=== PATIENT | female | born 1990 | race Two or more races ===

== ENCOUNTER 2016-11-26 22:07 | Emergency (ER) | payer OTHER ==
[~2016-11-26] VITALS: Ht 167.6 cm; Wt 63.5 kg
--- NOTE | 2016-11-26 22:40 | NUR ---
TO BED 4 AMBULATORY C/O INTERMITTENT RLQ ABD PAIN, SHOOTING, SHARP X 1 MONTH, WITH DISCHARGE. PT AAOX4 NO ACUTE DISTRESS NOTED, RESP EVEN AND UNLABORED. PENDING ER MD MARSH.
--- NOTE | 2016-11-26 22:49 | NUR ---
RAJIV JEROME AT BEDSIDE TO MAXIMO BROWN.
[2016-11-26] MEDS ORDERED: IV NS 0.9% 1,000 ML BAG IV ONE (23:00)
[2016-11-26] MEDS ORDERED: KETOROLAC TROMETHAMINE INJ 30 MG/ML VIAL IV ONE (23:00)
[2016-11-26] MEDS ORDERED: KETOROLAC TROMETHAMINE INJ 30 MG/ML VIAL ONE (23:02)
--- NOTE | 2016-11-26 23:16 | NUR ---
PT MEDICATED BY RN PER ER MD ORDER.
[2016-11-26 23:18] LABS: BASOPHILS % (AUTO) 0.4 % (0.0-2.0); EOSINOPHILS % (AUTO) 0.1 % (0.0-6.0); HEMATOCRIT 41 % (33-45); HEMOGLOBIN 14.2 g/dL (11.5-14.8); LYMPHOCYTES # (AUTO) 1.2 /CMM (0.8-4.8); LYMPHOCYTES % (AUTO) 12.1 % (20.0-44.0); MEAN CORPUSCULAR HEMOGLOBIN 30 PG (26.0-33.0); MEAN CORPUSCULAR HGB CONC 35 g/dl (31.0-36.0); MEAN CORPUSCULAR VOLUME 87 fL (82-100); MONOCYTES # (AUTO) 0.5 /CMM (0.1-1.30); MONOCYTES % (AUTO) 5.4 % (2.0-12.0); NEUTROPHILS # (AUTO) 7.9 /CMM (1.8-8.9); PLATELET COUNT (AUTO) 190 /CMM (150-450); RDW COEFFICIENT OF VARIATION 11.9 (11.5-15.0); RED BLOOD CELL COUNT(AUTO) 4.74 MIL/uL (4.0-5.2); WHITE BLOOD COUNT (AUTO) 9.7 K/uL (4.3-11.0)
[2016-11-26 23:23] LABS: APPEARANCE,URINE CLEAR (CLEAR); BILIRUBIN,URINE NEGATIVE (NEGATIVE); BLOOD, URINE NEGATIVE Ery/uL (NEGATIVE); KETONES,URINE NEGATIVE (NEGATIVE); LEUKOCYTE ESTERASE ,URINE NEGATIVE (NEGATIVE); NITRITE, URINE NEGATIVE (NEGATIVE); PH,URINE 7.5 (5.0-8.0); PROTEIN,URINE NEGATIVE (NEGATIVE); UGLUCOSE NEGATIVE (NEGATIVE); UROBILINOGEN,URINE 0.2 EU/dL (0.2)
[2016-11-26 23:25] LABS: COLOR,URINE Light yellow (YELLOW)
[2016-11-26 23:26] LABS: PREGNANCY TEST URINE QUAL NEGATIVE (NEGATIVE)
[2016-11-26 23:28] LABS: CALCIUM, SERUM 8.6 mg/dL (8.5-10.1); CREATININE 0.9 mg/dL (0.6-1.3); POTASSIUM 3.8 mmol/L (3.5-5.1)
[2016-11-26 23:31] LABS: INR 0.98 (0.87-1.13); PROTHROMBIN TIME 10.5 SECS (9.5-12.7)
--- NOTE | 2016-11-26 23:33 | NUR ---
PRUDENCIO GONZALEZ AT BEDSIDE.
[2016-11-26 23:34] LABS: ALBUMIN 3.5 g/dL (3.4-5.0); BILIRUBIN,DIRECT 0.1 mg/dL (0.0-0.2); BILIRUBIN,TOTAL 0.5 mg/dL (0.2-1.0); TOTAL PROTEIN, SERUM 6.5 g/dL (6.4-8.2)
[2016-11-27] MEDS ORDERED: METRONIDAZOLE 500 MG TABLET PO ONE (01:30)
[2016-11-27] MEDS ORDERED: CEFTRIAXONE 500 MG VIAL IM ONE (01:30)
[2016-11-27] MEDS ORDERED: CEFTRIAXONE 500 MG VIAL ONE (01:30)
[2016-11-27] MEDS ORDERED: METRONIDAZOLE 500 MG TABLET ONE (01:31)
[2016-11-27] MEDS ORDERED: LIDOCAINE HCL/PF 2 % 5ML SDV 5 ML VIAL ONE (01:31)
--- NOTE | 2016-11-27 01:42 | NUR ---
IV removed. Catheter intact and site benign. Pressure and 4x4 applied to site. No bleeding noted. Patient discharged to home in stable condition. Written and verbal after care instructions given. Patient verbalizes understanding of instruction. ambulatory with a steady gait noted. pt aaox4 no acute distress noted, resp even and unlabored.
[2016-11-27 01:43] VITALS: BP 127/63
== END 2016-11-27 01:45 | disposition home or self-care (01) ==
LOC: ER 22:09
DX: N83.202 Unspecified ovarian cyst, left side (principal); N89.8 Other specified noninflammatory disorders of vagina; Z88.1 Allergy status to other antibiotic agents; Z88.8 Allergy status to other drugs, medicaments and biological substances; Z20.2 Contact with and (suspected) exposure to infections with a predominantly sexual mode of transmission
CPT/HCPCS: 36415; 76856; 80048; 80076; 81001; 84703; 85025; 85730; 87070; 87081; 87110; 87210; 96361; 96372; 96374; 99285; A4606; J0696; J1885; J3490; J7030 ×2; Z7610; 81000-TC

== ENCOUNTER 2017-02-08 09:51 | Emergency (ER) | payer OTHER ==
[~2017-02-08] VITALS: Ht 167.6 cm; Wt 61.7 kg
--- NOTE | 2017-02-08 10:01 | NUR ---
PRESENTS TO ER C/O LEFT ANKLE PAIN, 12/09, ACHING S/P TRIPPED AND FELL YESRTERDAY. PATIENT A/OX 4. BREATHING EVEN AND UNLABORED. NO SOB. VITALS STABLE. SAFETY AND COMFORT MEASURES IN PLACE. AWAITING MD ORDERS.
--- NOTE | 2017-02-08 10:32 | NUR ---
PATIENT TAKEN TO XRAY VIA WHEELCHAIR.
--- NOTE | 2017-02-08 10:43 | NUR ---
PATIENT RETURNED FROM XRAY IN STABLE CONDITION.
[2017-02-08 11:03] VITALS: BP 116/78
--- NOTE | 2017-02-08 11:04 | NUR ---
Patient discharged to home in stable condition. Left ankle wrapped with DAVIS wrap per MD orders. Written and verbal after care instructions given. Patient verbalizes understanding of instruction.
== END 2017-02-08 11:04 | disposition home or self-care (01) ==
LOC: ER 09:52
DX: S93.402A Sprain of unspecified ligament of left ankle, initial encounter (principal); S63.611A Unspecified sprain of left index finger, initial encounter; Z88.8 Allergy status to other drugs, medicaments and biological substances; Z98.890 Other specified postprocedural states; Z88.1 Allergy status to other antibiotic agents; W01.0XXA Fall on same level from slipping, tripping and stumbling without subsequent striking against object, initial encounter; Y93.02 Activity, running; Y92.89 Other specified places as the place of occurrence of the external cause; Y99.9 Unspecified external cause status
CPT/HCPCS: 73120; 73610; 99284; A4606; Z7610

== ENCOUNTER 2017-03-08 20:07 | Emergency (ER) | payer OTHER ==
[~2017-03-08] VITALS: Ht 167.6 cm; Wt 61.7 kg
[2017-03-08 20:07] VITALS: BP 124/55
== END 2017-03-08 23:51 | disposition home or self-care (01) ==
LOC: ER 20:14
DX: J11.1 Influenza due to unidentified influenza virus with other respiratory manifestations (principal); Z88.0 Allergy status to penicillin; Z88.1 Allergy status to other antibiotic agents
CPT/HCPCS: 99281; A4606; Z7610; Z7502